=== PATIENT | male | born 1925 | race Caucasian/White ===

== ENCOUNTER 2016-10-12 16:10 | Emergency (ER) | payer MEDICARE ==
[~2016-10-12] VITALS: Ht 190.5 cm; Wt 90.7 kg
[~2016-10-12 16:10] MED LIST: CALC-20 PO; CHOL20004 PO; DONE10TA4 PO; LORA10TA68 PO; MEMA10PO MC; RIVA10TA PO; SERT50TA PO; [UNRECOGNIZED DRUG - CODE] IM
--- NOTE | 2016-10-12 16:25 | NUR ---
pt bibra from home to er bed 09. per report mechanical fall 2 days ago and is c/o lt knee pain. swelling noted. pt appears afib on the tele w/ rate of 120. gowned and placed on monitor. awaiting md cross.
--- NOTE | 2016-10-12 17:05 | NUR ---
dr ocasio at bedside for eval.
--- NOTE | 2016-10-12 17:14 | NUR ---
radiology at bedside for chest and l knee xray.
[2016-10-12] MEDS ORDERED: IV NS 0.9% 1,000 ML BAG IV ONE (17:30)
[2016-10-12] MEDS ORDERED: IV NS 0.9% 1,000 ML ONE (17:33)
[2016-10-12] MEDS ORDERED: IV SET PRIMARY 1 EA INFUS.SET MC ONE (17:33)
--- NOTE | 2016-10-12 17:34 | NUR ---
iv line started blood drawn and sent to lab.
[2016-10-12 17:39] LABS: LYMPHOCYTES # (AUTO) 1.3 /CMM (0.8-4.8); PLATELET COUNT (AUTO) 214 /CMM (150-450)
[2016-10-12] MEDS ORDERED: MEMA10TA PO (17:49)
[2016-10-12] MEDS ORDERED: DONE5TAB34 PO (17:49)
[2016-10-12] MEDS ORDERED: CHOL100044 PO (17:49)
[2016-10-12] MEDS ORDERED: CALC600T12 PO (17:49)
[2016-10-12 17:52] LABS: INR 1.46 (0.87-1.13); PROTHROMBIN TIME 15.5 SECS (9.5-12.7)
[2016-10-12 17:53] LABS: BASOPHILS # (AUTO) 0.1 /CMM (0.0-0.2); BASOPHILS % (AUTO) 0.7 % (0.0-2.0); EOSINOPHILS % (AUTO) 0.2 % (0.0-6.0); HEMATOCRIT 40 % (39-51); HEMOGLOBIN 12.2 g/dL (13.5-17.5); LYMPHOCYTES % (AUTO) 10.1 % (20.0-44.0); MEAN CORPUSCULAR HEMOGLOBIN 27 PG (26.0-33.0); MEAN CORPUSCULAR HGB CONC 31 g/dl (31.0-36.0); MEAN CORPUSCULAR VOLUME 88 fL (80-96); MONOCYTES % (AUTO) 7.9 % (2.0-12.0); NEUTROPHILS # (AUTO) 10.5 /CMM (1.8-8.9); NEUTROPHILS % (AUTO) 81.1 % (43.0-81.0); RDW COEFFICIENT OF VARIATION 15.6 (11.5-15.0); RED BLOOD CELL COUNT(AUTO) 4.51 MIL/uL (4.5-6.0); WHITE BLOOD COUNT (AUTO) 12.9 K/uL (4.3-11.0)
[2016-10-12 17:54] LABS: CALCIUM, SERUM 8.8 mg/dL (8.5-10.1); CARBON DIOXIDE 24 mmol/L (21-32); CHLORIDE 101 mmol/L (98-107); CREATININE 1.6 mg/dL (0.6-1.3); GLUCOSE 123 mg/dL (74-106); POTASSIUM 3.9 mmol/L (3.5-5.1); SODIUM SERUM 132 mmol/L (136-145); UREA NITROGEN, BLOOD 25 mg/dL (7-18)
[2016-10-12 18:02] LABS: ALANINE AMINOTRANSFERASE 13 U/L (12-78); ALKALINE PHOSPHATASE 118 U/L (46-116); ASPARTATE AMINOTRANSFERASE 42 U/L (15-37); BILIRUBIN,DIRECT 0.3 mg/dL (0.0-0.2); TOTAL PROTEIN, SERUM 6.8 g/dL (6.4-8.2)
[2016-10-12 18:06] LABS: TROPONIN I < 0.017 ng/mL (0.00-0.056)
--- NOTE | 2016-10-12 18:09 | NUR ---
CALLED NURSING SUP. FOR TELE BED
[2016-10-12 18:33] LABS: B-TYPE NATRIURETIC PEPTIDE 3170 PG/ML (0-125)
--- NOTE | 2016-10-12 19:43 | NUR ---
[facility]-- TRANSPORT ETA 60 MIN PER JEREMY
[2016-10-12 21:36] VITALS: BP 112/64
--- NOTE | 2016-10-12 21:36 | NUR ---
Patient discharged to home in stable condition. Written and verbal after care instructions given. Family verbalizes understanding of instruction.IV removed. Catheter intact and site benign. Pressure and 4x4 applied to site. No bleeding noted.
== END 2016-10-12 21:37 | disposition home or self-care (01) ==
LOC: ER 16:17
DX: M25.562 Pain in left knee (principal); J18.9 Pneumonia, unspecified organism; N28.9 Disorder of kidney and ureter, unspecified; F32.9 Major depressive disorder, single episode, unspecified; I10 Essential (primary) hypertension; I48.91 Unspecified atrial fibrillation; F03.90 Unspecified dementia, unspecified severity, without behavioral disturbance, psychotic disturbance, mood disturbance, and anxiety
CPT/HCPCS: 36415; 71010 ×2; 73564; 80048; 80076; 83880; 84484; 85025; 85730; 87081; 93005; 99285; A4606; J7030; Z7610

== ENCOUNTER 2016-10-16 16:46 | Inpatient (IN) | payer MEDICARE, OTHER ==
[~2016-10-16] VITALS: Ht 190.5 cm; Wt 104.3 kg
[~2016-10-16 16:46] MED LIST changes: -CALC-20 PO; +CALC600T12 PO; +CHOL100044 PO; -CHOL20004 PO; -DONE10TA4 PO; +DONE5TAB34 PO; -LORA10TA68 PO; -MEMA10PO MC; +MEMA10TA PO; -RIVA10TA PO; -[UNRECOGNIZED DRUG - CODE] IM
--- NOTE | 2016-10-16 17:00 | NUR ---
PT PATRICIA FROM HOME S/P GLF. PT AAOX2. NAD NOTED. DENIES KO. DENIES ANY PAIN. MD AT FOR EVAL. SAFETY AND COMFORT MEASURES PROVIDED. WILL MONITOR.
--- NOTE | 2016-10-16 17:15 | NUR ---
IV ACCESS STARTED. BLOOD DRAWN FOR LABS. URINE SAMPLE OBTAINED, SENT.
[2016-10-16 17:18] LABS: BASOPHILS # (AUTO) 0.8 /CMM (0.0-0.2); BASOPHILS % (AUTO) 4.4 % (0.0-2.0); EOSINOPHILS # (AUTO) 0.1 /CMM (0.0-0.7); EOSINOPHILS % (AUTO) 0.3 % (0.0-6.0); HEMATOCRIT 38 % (39-51); HEMOGLOBIN 12.4 g/dL (13.5-17.5); LYMPHOCYTES # (AUTO) 1.2 /CMM (0.8-4.8); LYMPHOCYTES % (AUTO) 7.3 % (20.0-44.0); MEAN CORPUSCULAR HEMOGLOBIN 29 PG (26.0-33.0); MEAN CORPUSCULAR HGB CONC 33 g/dl (31.0-36.0); MEAN CORPUSCULAR VOLUME 89 fL (80-96); MONOCYTES # (AUTO) 0.6 /CMM (0.1-1.30); MONOCYTES % (AUTO) 3.5 % (2.0-12.0); NEUTROPHILS # (AUTO) 14.3 /CMM (1.8-8.9); NEUTROPHILS % (AUTO) 84.5 % (43.0-81.0); PLATELET COUNT (AUTO) 307 /CMM (150-450); RDW COEFFICIENT OF VARIATION 15.7 (11.5-15.0)
[2016-10-16 17:29] LABS: CALCIUM, SERUM 8.8 mg/dL (8.5-10.1); CARBON DIOXIDE 25 mmol/L (21-32); CHLORIDE 100 mmol/L (98-107); CREATININE 1.6 mg/dL (0.6-1.3); GLUCOSE 120 mg/dL (74-106); POTASSIUM 4.6 mmol/L (3.5-5.1); SODIUM SERUM 135 mmol/L (136-145); UREA NITROGEN, BLOOD 30 mg/dL (7-18)
[2016-10-16 17:34] LABS: APPEARANCE,URINE Slightly Cloudy (CLEAR); BILIRUBIN,URINE SMALL (NEGATIVE); BLOOD, URINE Moderate Ery/uL (NEGATIVE); COLOR,URINE Dark (YELLOW); KETONES,URINE Negative (NEGATIVE); LEUKOCYTE ESTERASE ,URINE Small (NEGATIVE); NITRITE, URINE Positive (NEGATIVE); PH,URINE 5.5 (5.0-8.0); PROTEIN,URINE 30 mg/dl (NEGATIVE); UGLUCOSE Negative (NEGATIVE); UROBILINOGEN,URINE 0.2 EU/dL (0.2)
[2016-10-16 17:35] LABS: ALANINE AMINOTRANSFERASE 12 U/L (12-78); ALBUMIN 1.7 g/dL (3.4-5.0); ALKALINE PHOSPHATASE 131 U/L (46-116); ASPARTATE AMINOTRANSFERASE 41 U/L (15-37); BILIRUBIN,DIRECT 0.2 mg/dL (0.0-0.2); BILIRUBIN,TOTAL 0.8 mg/dL (0.2-1.0); TOTAL PROTEIN, SERUM 6.8 g/dL (6.4-8.2)
[2016-10-16 17:36] LABS: INR 1.43 (0.87-1.13); PROTHROMBIN TIME 15.2 SECS (9.5-12.7)
[2016-10-16 17:37] LABS: TROPONIN I < 0.017 ng/mL (0.00-0.056)
[2016-10-16 17:41] LABS: LACTIC ACID 3.1 mmol/L (0.4-2.0)
[2016-10-16 17:44] LABS: ADD URINE CULTURE YES; BACTERIA,URINE Moderate /HPF (None Seen); SQUAMOUS EPITHELIAL CELL,UR Rare /HPF (None Seen); WBC,URINE 81-100 /HPF (0-3)
--- NOTE | 2016-10-16 17:50 | NUR ---
DR.DAVID VILLANUEVA PAGED
[2016-10-16] MEDS ORDERED: PIPERACILLIN /TAZOBACTAM 3.375 G VIAL IV ONE (17:54)
[2016-10-16] MEDS ORDERED: IV NS 0.9% 1,000 ML ONE (17:54)
[2016-10-16] MEDS ORDERED: IV NS 0.9% 2,000 ML ONE (17:55)
[2016-10-16] MEDS ORDERED: IV SET PRIMARY PUMP SET 1 EA INFUS.SET MC ONE ×2 (17:55→22:17)
[2016-10-16] MEDS ORDERED: IV SET PRIMARY 1 EA INFUS.SET MC ONE (17:55)
[2016-10-16] MEDS ORDERED: PIPERACILLIN /TAZOBACTAM 2.25 G in IV D5W 50 ML IV ONE (18:00)
[2016-10-16] MEDS ORDERED: IV NS 0.9% 1,000 ML BAG IV ONE (18:00)
[2016-10-16] MEDS ORDERED: VANCOMYCIN 1 GM in IV D5W 250 ML IV ONE (18:00)
--- NOTE | 2016-10-16 18:04 | NUR ---
CALLED NURSING SUP. FOR TELE BED
[2016-10-16 18:54] LABS: BAND % (MANUAL) 1 % (0.0-5.0); BASOPHILS % (MANUAL) 0 % (0.0-2.0); EOSINOPHILS % (MANUAL) 0 % (0-4); LYMPHOCYTES % (MANUAL) 2 % (16-48); MONOCYTES % (MANUAL) 7 % (0-11.0); NEUTROPHILS % (MANUAL) 90 (42-76); PLATELET ESTIMATE ADEQUATE
--- NOTE | 2016-10-16 19:20 | NUR ---
CALLING REPORT TO TELE, MACHO
[2016-10-16 20:00] VITALS: BP 133/79
--- NOTE | 2016-10-16 20:30 | NUR ---
TELE/RN NOTES PAGED DR. MACKENZIE FOR ADMITTING ORDERS
--- NOTE | 2016-10-16 20:30 | NUR ---
TELE/RN OPENING NOTES PT ARRIVED TO UNIT FROM ER VIA GURNEY ACCOMPANIED BY DAUGHTER AND CAREGIVER. PT O2 IN THE LOW 90'S, ADMINISTERED 2LPM O2 VIA NC AND O2 SAT AT 96%. BREATHING IS EVEN AND UNLABORED WITH NO SIGNS OF DISTRESS. NON-PRODUCTIVE COUGH NOTED. ON TELE MONITOR, SINUS RHYTHM WITH BBB'S, PAC'S AND PVC'S, HEART RATE AT 86. IV TO RAC AND RFA PATENT AND INTACT, WITH NS BOLUS STILL INFUSING FROM ER. ORIENTED PT/FAMILY TO ROOM AND CALL LIGHT. BED RAILS UP WITH BED ALARM ON. IN LOW LOCKED POSITION. WILL CONTINUE TO MONITOR
--- NOTE | 2016-10-16 21:00 | NUR ---
TELE/RN NOTES SPOKE TO DR. MACKENZIE FOR ADMITTING ORDERS TO CONTINUE HOME MEDS, O2 AT 2L TO KEEP O2>92%, PUREE DIET, NS @ 100ML/HR, VANCO DOSING PER PHARMACY IN THE AM, ZOSYN DOSING PER PHARMACY IN THE AM, SWALLOW EVAL AND PT EVAL IN AM. MORNING LABS=CBC, BMP, MAG, PHOS ALL ORDERS NOTED AND TO BE ENTERED
[2016-10-16] MEDS ORDERED: IV NS 0.9% 1,000 ML BAG IV PRN (22:30)
[2016-10-16] MEDS: IV NS 0.9% 1,000 ML IV PRN (22:31)
--- NOTE | 2016-10-16 23:00 | NUR ---
TELE/RN NOTES PAGED DR. MEMBRENO AU PAIR MD FOR DR. MACKENZIE. LACTIC ACID 2.6 DOWN FROM 3.1 MADE AWARE OF 3.1L BOLUS NS, VANCO AND ZOSYN ADMINISTERED IN THE ER AND DR. MACKENZIE'S ORDERS. ORDERED LACTIC ACID FOR AM.
[2016-10-17] VITALS: BP 110/63
[2016-10-17 04:00] VITALS: BP 121/64
--- NOTE | 2016-10-17 06:38 | NUR ---
TELE/RN CLOSING NOTES PT ASLEEP, EASILY AROUSABLE TO NAME/TOUCH. IS HARD OF HEARING AND A/OX1-2. ON 2LPM O2 VIA NC, NO SOB OR S/S OF DISTRESS NOTED. ON TELE MONITOR, SINUS RHYTHM WITH BBB, PAC'S AND PVC'S WITH HEART RATE AT 92. BREATHING IS EVEN AND UNLABORED. IV TO RIGHT AC AND RIGHT FA PATENT AND INTACT. IVF TO RFA RUNNING NS @100ML/HR ORDERED. SWALLOW EVAL AND PT EVAL FOR THIS AM. BED IN LOW/LOCKED POSITION WITH CALL LIGHT IN REACH. BED RAILS UP AND ALARM ON. DAUGHTER SEYMOUR ([phone]) TO BRING A COPY OF ADVANCED DIRECTIVE THIS AM
[2016-10-17 06:48] VITALS: BP 119/72
[2016-10-17 06:50] LABS: EOSINOPHILS # (AUTO) 0.1 /CMM (0.0-0.7); EOSINOPHILS % (AUTO) 1.1 % (0.0-6.0); HEMATOCRIT 31 % (39-51); HEMOGLOBIN 10.1 g/dL (13.5-17.5); LYMPHOCYTES # (AUTO) 0.6 /CMM (0.8-4.8); LYMPHOCYTES % (AUTO) 5.3 % (20.0-44.0); MEAN CORPUSCULAR HEMOGLOBIN 29 PG (26.0-33.0); MEAN CORPUSCULAR HGB CONC 33 g/dl (31.0-36.0); MEAN CORPUSCULAR VOLUME 90 fL (80-96); MONOCYTES # (AUTO) 0.5 /CMM (0.1-1.30); MONOCYTES % (AUTO) 4.2 % (2.0-12.0); NEUTROPHILS # (AUTO) 10.2 /CMM (1.8-8.9); NEUTROPHILS % (AUTO) 89.4 % (43.0-81.0); PLATELET COUNT (AUTO) 241 /CMM (150-450); RDW COEFFICIENT OF VARIATION 16.7 (11.5-15.0); RED BLOOD CELL COUNT(AUTO) 3.45 MIL/uL (4.5-6.0); WHITE BLOOD COUNT (AUTO) 11.5 K/uL (4.3-11.0)
[2016-10-17 07:12] LABS: CALCIUM, SERUM 7.6 mg/dL (8.5-10.1); CREATININE 1.1 mg/dL (0.6-1.3); MAGNESIUM 1.8 mg/dL (1.8-2.4); PHOSPHORUS 2.8 mg/dL (2.5-4.9); POTASSIUM 3.7 mmol/L (3.5-5.1)
--- NOTE | 2016-10-17 07:15 | NUR ---
RN OR LVN NOTES RECEIVED PATIENT IN BED, SLEEPING, AROUSES EASILY. ON TELE MONITOR SINUS RHYTHM WITH FIRST DEGREE AV BLOCK, BBB, PAC. NO SOB NOTED, APPEARS COMFORTABLE IN BED, ON OXYGEN AT 2L/MIN VIA NC. CALL LIGHT WITHIN REACH. BED LOW AND LOCKED, SIDE RAILS UP X2. WILL CONT TO MONITOR.
[2016-10-17 08:00] VITALS: BP 119/72
[2016-10-17] MEDS ORDERED: FEE PK DOSING 1 MIN EA MC ONE (08:50)
[2016-10-17] MEDS: PIPERACILLIN /TAZOBACTAM 3.375 G in IV D5W 50 ML IV SCH ×3 (09:11→20:08)
[2016-10-17] MEDS: IV NS 0.9% 1,000 ML IV PRN (09:50)
[2016-10-17] MEDS ORDERED: VANCOMYCIN 1.25 GM in IV D5W 500 ML IV SCH (12:00)
[2016-10-17] MEDS ORDERED: SECONDARY IV SET 1 EA INFUS.SET MC ONE (12:37)
[2016-10-17] MEDS: SERTRALINE HCL 50 MG TABLET PO SCH (12:40)
[2016-10-17] MEDS: CHOLECALCIFEROL 1,000 UNIT TABLET (VIT D3) PO SCH (12:40)
--- NOTE | 2016-10-17 14:30 | NUR ---
PATIENT IS SEEN BY [facility] TODAY FOR [facility] AND RECOMMENDED MECHANICAL SOFT DIET.
[2016-10-17 16:00] VITALS: BP 127/79
--- NOTE | 2016-10-17 16:18 | NUR ---
PATIENT IS SEEN BY DR. RUBIO ZAMORANO TODAY, DAUGHTER ADRIANA BROUGHT IN [facility], PATIENT IS DNR STATUS. CHANGED CODE TO DNR ORDERED, CO-SIGNED BY ANOTHER RN.
[2016-10-17] MEDS: MEMANTINE HCL 5 MG TABLET PO SCH (17:05)
[2016-10-17] MEDS: ENOXAPARIN SODIUM 40 MG/0.4 ML DISP.SYRIN SQ SCH (17:25)
--- NOTE | 2016-10-17 18:41 | NUR ---
MS RN PATIENT IN BED, A/O X1 WITH CONFUSION. NOT IN DISTRESS, ON ANTIBIOTIC WITH NO ADVERSE REACTION, AFEBRILE. IV NS INFUSING AT 100ML/HR, TOLERATING WELL. TURN AND REPOSITION, ON ISOFLEX BED. MADE COMFORTABLE IN BED, CALL LIGHT WITHIN REACH. NO BOWEL MOVEMENT TODAY. FOR STOOL OB X3 ORDERED. WILL ENDORSE TO PAINTER TUMBLING BARREL RN FOR CONTINUITY OF CARE.
--- NOTE | 2016-10-17 19:30 | NUR ---
MS/RN OPENING NOTES PT ASLEEP, EASILY AROUSABLE TO NAME/TOUCH. IS HARD OF HEARING. ON 2LPM 02 VIA NC, BREATHING IS EVEN AND UNLABORED. NON PRODUCTIVE COUGH NOTED. IV TO RFA PATENT AND INTACT RUNNING IVF ORDERED. TO COLLECT STOOL X3 AND URINE FOR UA. BED IN LOW/LOCKED POSITION WITH CALL LIGHT IN REACH, BED RAILS UPX3 AND ALARM ON. WILL CONTINUE TO MONITOR
[2016-10-17 20:14] VITALS: BP 104/58
[2016-10-17] MEDS: Z GUARD REMEDY 2 OZ OINT TP SCH (20:59)
[2016-10-18] MEDS: PIPERACILLIN /TAZOBACTAM 3.375 G in IV D5W 50 ML IV SCH ×3 (01:26→11:37)
--- NOTE | 2016-10-18 02:00 | NUR ---
MS/RN NOTES PT ASLEEP, EASILY AROUSABLE TO NAME. BREATHING EVEN AND UNLABORED. WILL CONTINUE TO MONITOR
[2016-10-18] MEDS: IV NS 0.9% 1,000 ML IV PRN ×2 (02:49→21:23)
[2016-10-18] MEDS: VANCOMYCIN 1.25 GM in IV D5W 500 ML IV SCH (05:19)
--- NOTE | 2016-10-18 06:45 | NUR ---
MS/RN CLOSING NOTES PT ASLEEP, EASILY AROUSABLE TO NAME/ TOUCH. REMAINS ON O2 AT 2LPM VIA NC. NON PRODUCTIVE COUGH BUT DENIES SHORTNESS OF BREATH. NO S/S OF DISTRESS NOTED. DENIES PAIN. IV TO RIGHT FA PATENT AND INTACT, RUNNING IVF ORDERED. KEPT SKIN CLEAN AND DRY. Z GUARD APPLIED AND TURNED/REPOSITIONED Q2H. EXTREMITIES OFFLOADED. MADE PT COMFORTABLE THROUGHOUT SHIFT. ALL NEEDS MET AND ATTENDED. BED KEPT IN LOW/LOCKED POSITION WITH CALL LIGHT IN REACH. BED RAILS UPX3 WITH ALARM ON. WILL ENDORSE TO AM SHIFT AGUEDA.
--- NOTE | 2016-10-18 06:56 | NUR ---
MS/RN CLOSING NOTES PT AWAKE, A/OX3. ON/OFF 2LPM O2 VIA NC. DENIES SOB OR PAIN. BREATHING IS EVEN AND UNLABORED. NO SIGNS OF DISTRESS. NO IV SITE AT THIS TIME, DUE TO PT REFUSING RE-INSERTION. MADE AWARE OF ELEVATED BP WITH NO NEW ORDERS, ONLY TO MONITOR UNTIL AM. PT TO HAVE HD TODAY. BED IN LOW/LOCKED POSITION, CALL LIGHT IN REACH. BED RAILS UPX2. MADE PT COMFORTABLE AND ALL NEEDS MET AND ATTENDED TO. WILL ENDORSE TO AM SHIFT AGUEDA.
--- NOTE | 2016-10-18 07:25 | NUR ---
MS RN OPENING NOTES RECEIVED PT. FROM NIGHTSHIFT NURSE IN STABLE CONDITION. A/O X2. NO SOB OR SIGNS OF DISTRESS NOTED. BREATHING IS EVEN AND UNLABORED. RESPONDS TO NAME AND TOUCH. IV PRESENT ON RIGHT FOREARM INTACT AND PATENT INFUSING NS @ 100ML/HR. PT TOLERATING INFUSION WELL. NO REDNESS OR INFILTRATION NOTED. ISOFLEX BED IN LOW LOCKED POSITION, SIDE RAILS UP X2, CALL LIGHT WITHIN REACH. WILL CONTINUE TO MONITOR.
[2016-10-18 08:00] VITALS: BP 107/60
[2016-10-18] MEDS: CHOLECALCIFEROL 1,000 UNIT TABLET (VIT D3) PO SCH (08:24)
[2016-10-18] MEDS: DONEPEZIL 5 MG TABLET PO SCH (08:24)
[2016-10-18] MEDS: CALCIUM CARBONATE 500 MG TAB.CHEW PO SCH (08:24)
[2016-10-18] MEDS: MEMANTINE HCL 5 MG TABLET PO SCH ×2 (08:24→17:41)
[2016-10-18] MEDS: SERTRALINE HCL 50 MG TABLET PO SCH (08:24)
[2016-10-18] MEDS: Z GUARD REMEDY 2 OZ OINT TP SCH ×2 (08:27→21:58)
[2016-10-18] MEDS ORDERED: CHOLECALCIFEROL 1,000 UNIT TABLET (VIT D3) PO SCH (09:00)
[2016-10-18 09:46] LABS: BASOPHILS % (AUTO) 0.2 % (0.0-2.0); EOSINOPHILS # (AUTO) 0.1 /CMM (0.0-0.7); EOSINOPHILS % (AUTO) 1.6 % (0.0-6.0); HEMATOCRIT 29 % (39-51); HEMOGLOBIN 9.4 g/dL (13.5-17.5); LYMPHOCYTES # (AUTO) 0.6 /CMM (0.8-4.8); LYMPHOCYTES % (AUTO) 7.6 % (20.0-44.0); MEAN CORPUSCULAR HEMOGLOBIN 29 PG (26.0-33.0); MEAN CORPUSCULAR HGB CONC 32 g/dl (31.0-36.0); MEAN CORPUSCULAR VOLUME 89 fL (80-96); MONOCYTES # (AUTO) 0.5 /CMM (0.1-1.30); MONOCYTES % (AUTO) 5.8 % (2.0-12.0); NEUTROPHILS # (AUTO) 6.7 /CMM (1.8-8.9); NEUTROPHILS % (AUTO) 84.8 % (43.0-81.0); PLATELET COUNT (AUTO) 209 /CMM (150-450); RDW COEFFICIENT OF VARIATION 17.1 (11.5-15.0); RED BLOOD CELL COUNT(AUTO) 3.27 MIL/uL (4.5-6.0); WHITE BLOOD COUNT (AUTO) 7.9 K/uL (4.3-11.0)
[2016-10-18 10:03] LABS: BILIRUBIN,TOTAL 0.8 mg/dL (0.2-1.0); CALCIUM, SERUM 7.4 mg/dL (8.5-10.1); MAGNESIUM 1.8 mg/dL (1.8-2.4); PHOSPHORUS 2.2 mg/dL (2.5-4.9); POTASSIUM 3.3 mmol/L (3.5-5.1); TOTAL PROTEIN, SERUM 5.3 g/dL (6.4-8.2)
[2016-10-18 10:25] LABS: ALBUMIN 1.2 g/dL (3.4-5.0)
--- NOTE | 2016-10-18 10:30 | NUR ---
MS RN NOTES PT'S ALBUMIN WAS CRITICALLY LOW AT 1.2 DR. MACKENZIE WAS NOTIFIED. AWAITING MD ORDERS.
--- NOTE | 2016-10-18 11:02 | NUR ---
MS RN NOTES DR. DODSON AWARE OF LOW ALBUMIN. STATES THAT IT IS DUE TO MALNUTRITION AND ENCOURAGE NUTRITIONAL INTAKE. WILL CONTINUE TO MONITOR.
[2016-10-18] MEDS: FERROUS SULFATE (325 MG) 325 MG/TAB TABLET PO SCH ×2 (11:37→17:41)
[2016-10-18 11:43] VITALS: BP 107/60
[2016-10-18] MEDS ORDERED: K PHOS NEUTRAL 250 MG TABLET PO ONE (13:30)
[2016-10-18] MEDS ORDERED: POTASSIUM CHLORIDE 20 MEQ TAB.PRT.SR PO SCH (13:30)
[2016-10-18 16:00] VITALS: BP 105/59
--- NOTE | 2016-10-18 18:50 | NUR ---
MS RN CLOSING NOTES PT. IN STABLE CONDITION. NO SOB OR SIGNS OF DISTRESS AT THIS TIME. PT'S IV WAS LEAKING. I TRIED REINSERTING IT BUT WAS UNSUCCESSFUL. WILL ENDORSE TO NIGHTSHIFT NURSE TO TRY REINSERTION.ALL NEEDS MET AND ORDERS CARRIED OUT ACCORDINGLY. NO ACUTE CHANGES IN CONDITION DURING SHIFT. ALL SAFETY MEASURES IN PLACE. WILL ENDORSE TO NIGHTSHIFT NURSE FOR AGUEDA
--- NOTE | 2016-10-18 19:30 | NUR ---
MS/BALER; RECEIVED PT IN BED SLEEPING. BREATHING NON LABORED. WITH 02 2L NC PN. BED ON LOWER POSITION AND LOCKED FOR SAFETY. SIDE RAILS ARE UP FOR SAFETY. CONTINUE TO MONITOR. CALL LIGHT WITHIN REACH. ON CONTACT ISOLATION OBSERVED.
[2016-10-18 20:00] VITALS: BP 108/71
--- NOTE | 2016-10-18 20:00 | NUR ---
MS/WELL DRILL OPERATOR HELPER CABLE TOOL; RN DID TRY TO START AND IV LINE BUT NO SUCCESS. CHARGE MADE AWARE.
--- NOTE | 2016-10-18 21:00 | NUR ---
MS/BRIM BLOCKER; POUCH MAKING MACHINE OPERATOR , ED DID TRY IV LINE INSERTION ON RT IJ. HE SAID TO RESUME THE IVF AND OBSERVED FRO ANY SWELLING. IVF RESUMED.
[2016-10-18] MEDS: ENOXAPARIN SODIUM 40 MG/0.4 ML DISP.SYRIN SQ SCH (22:00)
--- NOTE | 2016-10-18 22:00 | NUR ---
MS/DIRECTOR OF FRONT OFFICE; CHARGE NURSE IGOR GOT AND ORDER FOR MIDLINE FROM DR. SHANKAR.
--- NOTE | 2016-10-19 | NUR ---
MS/CASE COORDINATOR; MACHO FRANCES CAME TO PUT A MIDLINE TO THIS PT. PT REFUSED PER JUAN DANIEL. SO I EXPLAINED TO THE PT AND HE AGREED TO HAVE MID LINE INSERTION. SO MACHO FRANCES INSERTED A MID LINE TO PT 'S PAMELA. IVF RESUMED.
[2016-10-19] MEDS: VANCOMYCIN 1.25 GM in IV D5W 500 ML IV SCH (00:23)
--- NOTE | 2016-10-19 02:00 | NUR ---
MS/SENIOR ACCOUNTING MANAGER; SLEEPING AT THIS TIME. BREATHING NON LABORED. CONTINUE TO MONITOR.
--- NOTE | 2016-10-19 06:29 | NUR ---
MS/AUTOMOTIVE TECHNICIAN INSTRUCTOR; SLEPT FAIRLY. IVF ON PROGRESS. BREATHING NON LABORED. DENIES PAIN. CONTINUE TO MONITOR. CALL LIGHT WITHIN REACH. WILL ENDORSE TO THE DAY SHIFT NURSE.
[2016-10-19 07:04] LABS: EOSINOPHILS # (AUTO) 0.2 /CMM (0.0-0.7); HEMATOCRIT 30 % (39-51); HEMOGLOBIN 9.9 g/dL (13.5-17.5); LYMPHOCYTES # (AUTO) 0.8 /CMM (0.8-4.8); LYMPHOCYTES % (AUTO) 10.7 % (20.0-44.0); MEAN CORPUSCULAR HEMOGLOBIN 29 PG (26.0-33.0); MEAN CORPUSCULAR HGB CONC 33 g/dl (31.0-36.0); MEAN CORPUSCULAR VOLUME 89 fL (80-96); MONOCYTES # (AUTO) 0.4 /CMM (0.1-1.30); MONOCYTES % (AUTO) 5.4 % (2.0-12.0); NEUTROPHILS # (AUTO) 6.2 /CMM (1.8-8.9); NEUTROPHILS % (AUTO) 81.9 % (43.0-81.0); PLATELET COUNT (AUTO) 233 /CMM (150-450); RED BLOOD CELL COUNT(AUTO) 3.37 MIL/uL (4.5-6.0); WHITE BLOOD COUNT (AUTO) 7.6 K/uL (4.3-11.0)
--- NOTE | 2016-10-19 07:13 | NUR ---
MS RN OPENING NOTES RECEIVED PT. FROM NIGHTSHIFT NURSE IN STABLE CONDITION. A/O X2. ON 2 L O2 VIA NC. NO SOB OR SIGNS OF DISTRESS NOTED. BREATHING IS EVEN AND UNLABORED. RESPONDS TO NAME AND TOUCH. MIDLINE PRESENT ON RIGHT UPPER ARM INTACT AND PATENT INFUSING NS @ 100ML/HR. PT TOLERATING INFUSION WELL. SECOND IV ON RIGHT IJ, HL, ALSO INTACT AND PATENT. NO REDNESS OF INFILTRATION NOTED. NO REDNESS OR INFILTRATION NOTED. ISOFLEX BED IN LOW LOCKED POSITION, SIDE RAILS UP X2, CALL LIGHT WITHIN REACH. WILL CONTINUE TO MONITOR.
[2016-10-19 07:23] LABS: CALCIUM, SERUM 7.5 mg/dL (8.5-10.1); CREATININE 0.8 mg/dL (0.6-1.3); MAGNESIUM 1.8 mg/dL (1.8-2.4); PHOSPHORUS 2.3 mg/dL (2.5-4.9); POTASSIUM 3.4 mmol/L (3.5-5.1)
[2016-10-19 08:00] VITALS: BP 99/53
[2016-10-19] MEDS: CHOLECALCIFEROL 1,000 UNIT TABLET (VIT D3) PO SCH (09:49)
[2016-10-19] MEDS: CALCIUM CARBONATE 500 MG TAB.CHEW PO SCH (09:49)
[2016-10-19] MEDS: SERTRALINE HCL 50 MG TABLET PO SCH (09:49)
[2016-10-19] MEDS: MEMANTINE HCL 5 MG TABLET PO SCH ×2 (09:49→17:55)
[2016-10-19] MEDS: Z GUARD REMEDY 2 OZ OINT TP SCH ×2 (09:50→22:08)
[2016-10-19] MEDS: DONEPEZIL 5 MG TABLET PO SCH (09:50)
[2016-10-19] MEDS: FERROUS SULFATE (325 MG) 325 MG/TAB TABLET PO SCH ×2 (09:50→17:55)
[2016-10-19] MEDS ORDERED: POTASSIUM CHLORIDE 20 MEQ TAB.PRT.SR PO ONE (10:30)
[2016-10-19] MEDS: IV NS 0.9% 1,000 ML IV PRN (10:43)
[2016-10-19] MEDS ORDERED: POTASSIUM PHOSPHATE MM 5 MMOL in IV D5W 100 ML IV SCH (12:00)
[2016-10-19] MEDS: VANCOMYCIN 1 GM in IV D5W 250 ML IV SCH (12:37)
[2016-10-19 16:00] VITALS: BP 102/58
--- NOTE | 2016-10-19 18:59 | NUR ---
MS RN CLOSING NOTES PT. IN STABLE CONDITION. NO SOB OR SIGNS OF DISTRESS AT THIS TIME. ALL SAFETY MEASURES IN PLACE. PT. KEPT COMFORTABLE AND DRY. REPOSITIONED EVERY 2 HOURS. ALL NEEDS MET AND ORDERS CARRIED OUT ACCORDINGLY. NO ACUTE CHANGES IN CONDITION DURING SHIFT. WILL ENDORSE TO NIGHTSHIFT NURSE FOR AGUEDA
--- NOTE | 2016-10-19 19:09 | NUR ---
Dtr Jeanette is requesting SNF @ [facility] with pcp Dr. Feroz Myers. Referral faxed to [facility] [phone], spoke with Radha who is aware patient is on isolation. Patient has been accepted and bed is available when discharge. Jeanette-dtr is aware and agreed with current dc plan. Addendum: 10/19/16 at 1910 by NATANAEL MOHR RN Amended: Links added.
--- NOTE | 2016-10-19 19:20 | NUR ---
MS/RN NOTES RECEIVED PT. LYING IN BED RESTING. PT. IS EASILY AROUSABLE TO NAME AND TOUCH. AWAKE, ALERT AND ORIENTED X2. BREATHING EVEN AND UNLABORED ON 3LPM O2 VIA NC. NO SOB, RESPIRATORY DISTRESS OR COMPLAINTS OF PAIN NOTED. PT. WITH RIGHT IJ SALINE LOCK PRESENT, PATENT AND INTACT. PT. WITH RIGHT UPPER ARM MIDLINE PRESENT, PATENT AND INTACT ADMINISTERING TO PT. NS @ 100ML/HR. PT. WITH CAREGIVERS PRESENT AT BEDSIDE. SIDE RAILS UP X3, BED ALARM ON, BED IN LOWEST POSITION, CALL LIGHT WITHIN REACH, WILL CONTINUE TO MONITOR.
[2016-10-19 20:30] VITALS: BP 103/62
[2016-10-19] MEDS: ENOXAPARIN SODIUM 40 MG/0.4 ML DISP.SYRIN SQ SCH (21:00)
[2016-10-19] MEDS: MUPIROCIN OINT 2% 22 GM TUBE SCH (22:08)
[2016-10-20] MEDS: VANCOMYCIN 1 GM in IV D5W 250 ML IV SCH ×2 (00:10→11:26)
[2016-10-20] MEDS: IV NS 0.9% 1,000 ML IV PRN (00:10)
--- NOTE | 2016-10-20 06:29 | NUR ---
MS/RN NOTES PT. LYING IN BED RESTING. BREATHING EVEN AND UNLABORED ON 2LPM O2 VIA NC. NO SOB, RESPIRATORY DISTRESS OR COMPLAINTS OF PAIN NOTED. PT. WITH RIGHT IJ SALINE LOCK PRESENT, PATENT AND INTACT. PT. WITH RIGHT UPPER ARM MIDLINE PRESENT, PATENT AND INTACT ADMINISTERING TO PT. NS @ 100ML/HR. BED IN LOWEST POSITION, SIDE RAILS UP X3, BED ALARM ON, CALL LIGHT WITHIN REACH, WILL ENDORSE TO DAYSHIFT NURSE FOR CONTINUITY OF CARE.
--- NOTE | 2016-10-20 07:25 | NUR ---
RN MS OPENING NOTES RECEIVED PATIENT IN BED, ASLEEP, HEAD OF BED ELEVATED, NO SOB OR DISTRESS NOTED, ON O2 2LPM VIA NC AND TOLERATED WELL. ALERT AND ORIENTED TIMES 1-2. IV INTACT AND PATENT. KEPT PATIENT CLEAN AND COMFORTABLE IN BED, CALL LIGHT WITHIN PATIENT REACH, WILL CONTINUE TO MONITOR ACCORDINGLY.
[2016-10-20 07:35] LABS: CALCIUM, SERUM 7.5 mg/dL (8.5-10.1); CREATININE 0.8 mg/dL (0.6-1.3); POTASSIUM 3.9 mmol/L (3.5-5.1)
[2016-10-20 09:30] VITALS: BP 108/55
[2016-10-20] MEDS: MEMANTINE HCL 5 MG TABLET PO SCH ×2 (10:00→17:15)
[2016-10-20] MEDS: Z GUARD REMEDY 2 OZ OINT TP SCH ×2 (10:00→21:14)
[2016-10-20] MEDS: DONEPEZIL 5 MG TABLET PO SCH (10:01)
[2016-10-20] MEDS: FERROUS SULFATE (325 MG) 325 MG/TAB TABLET PO SCH ×2 (10:02→17:15)
[2016-10-20] MEDS: CALCIUM CARBONATE 500 MG TAB.CHEW PO SCH (10:02)
[2016-10-20] MEDS: SERTRALINE HCL 50 MG TABLET PO SCH (10:02)
[2016-10-20] MEDS: CHOLECALCIFEROL 1,000 UNIT TABLET (VIT D3) PO SCH (10:02)
[2016-10-20] MEDS: MUPIROCIN OINT 2% 22 GM TUBE SCH ×2 (10:03→21:14)
--- NOTE | 2016-10-20 12:00 | NUR ---
RN NOTES SON IN LAW LEFT HIS NUMBER TO CONTACT HIM FOR ANYTHING.
--- NOTE | 2016-10-20 15:00 | NUR ---
RN NOTES PATIENT IN STABLE CONDITION RESTING IN BED WITH HEAD OF BED ELEVATED.
[2016-10-20 16:00] VITALS: BP 113/83
[2016-10-20] MEDS: RIVAROXABAN 10 MG TABLET PO SCH (17:17)
--- NOTE | 2016-10-20 19:05 | NUR ---
RN CLOSING NOTES ALL NEEDS PROVIDED, ATTENDED AND ANTICIPATED. KEPT PATIENT CLEAN AND COMFORTABLE IN BED, CALL LIGHT WITHIN PATIENT REACH , WILL CONTINUE TO MONITOR ACCORDINGLY. ENDORSED TO NEXT SHIFT RN TO CONTINUE CARE.
--- NOTE | 2016-10-20 19:30 | NUR ---
MS RN INITIAL NOTES: RECEIVED REPORT FROM MARE PRITCHARD. PT IN BED, AWAKE, A/O X2, ON 2L VIA NC RESPIRATION EVEN AND UNLABORED, NOTED PT TO HAVE NON PRODUCTIVE COUGH. RIGHT IJ IN PLACED AND PAMELA MIDLINE IN PLACED, BOTH PATENT AND FLUSHING WELL, ON HL. NOTED BOTH FEET EDEMA , KEPT OFFLOADED ON PILLOWS. CAREGIVER AT BED SIDE. SAFETY PRECAUTIONS FOR FALL INITIATED CALL LIGHT IN REACH, WILL CONTINUE TO MONITOR.
[2016-10-20 20:00] VITALS: BP 106/64
[2016-10-21] MEDS: VANCOMYCIN 1 GM in IV D5W 250 ML IV SCH ×2
--- NOTE | 2016-10-21 00:19 | NUR ---
ms rnnotes: result of vanco trough came back and reveal 21, dose of vancomycin not given at this time, per parameter hold if greater than 20, wrap yarn sorter aware
--- NOTE | 2016-10-21 05:36 | NUR ---
morning care: assisted top frame fitter in providing bed bath to the pt, wound care done as ordered, ble offloaded
--- NOTE | 2016-10-21 06:31 | NUR ---
ms rn closing notes: pt in bed, awake, remains a/o x2, on 2l via nc, respiration even and unlabored, no facial grimace noted. no untoward event happened throughout the shift. vanco trough level reported to pharmacy. emerita midline and right ij remains patent and flushing well, ble kept offloaded. vs remains stable, needs attended. will endorse to day rn for rachele.
[2016-10-21 07:23] LABS: CALCIUM, SERUM 7.6 mg/dL (8.5-10.1); CREATININE 0.7 mg/dL (0.6-1.3); POTASSIUM 3.8 mmol/L (3.5-5.1)
--- NOTE | 2016-10-21 07:30 | NUR ---
RN NOTES: RECEIVED PT IN BED, AWAKE, A/O X2, ON 2L VIA NC RESPIRATION EVEN AND UNLABORED, NOTED PT TO HAVE NON PRODUCTIVE COUGH. RIGHT IJ IN PLACED AND PAMELA MIDLINE IN PLACED, BOTH PATENT AND FLUSHING WELL, ON HL. NOTED BOTH FEET EDEMA , KEPT OFFLOADED ON PILLOWS. SAFETY PRECAUTIONS FOR FALL OBSERVED CALL LIGHT IN REACH, WILL CONTINUE TO MONITOR.
[2016-10-21 08:00] VITALS: BP 114/61
[2016-10-21] MEDS: FERROUS SULFATE (325 MG) 325 MG/TAB TABLET PO SCH ×2 (09:10→16:35)
[2016-10-21] MEDS: SERTRALINE HCL 50 MG TABLET PO SCH (09:10)
[2016-10-21] MEDS: CALCIUM CARBONATE 500 MG TAB.CHEW PO SCH (09:10)
[2016-10-21] MEDS: DONEPEZIL 5 MG TABLET PO SCH (09:10)
[2016-10-21] MEDS: MEMANTINE HCL 5 MG TABLET PO SCH ×2 (09:10→16:35)
[2016-10-21] MEDS: CHOLECALCIFEROL 1,000 UNIT TABLET (VIT D3) PO SCH (09:16)
[2016-10-21] MEDS: Z GUARD REMEDY 2 OZ OINT TP SCH ×2 (09:18→21:00)
[2016-10-21] MEDS: MUPIROCIN OINT 2% 22 GM TUBE SCH ×2 (09:18→21:01)
[2016-10-21] MEDS: VANCOMYCIN 0.75 GM in IV D5W 250 ML IV SCH ×2 (09:46→21:14)
[2016-10-21 16:00] VITALS: BP 105/59
[2016-10-21] MEDS: RIVAROXABAN 10 MG TABLET PO SCH (16:39)
--- NOTE | 2016-10-21 19:05 | NUR ---
RN NOTES: PT IN BED, ASLEEP EASILY AROUSABLE DURING CARE, A/O X2, ON 2L VIA NC RESPIRATION EVEN AND UNLABORED, NOTED PT TO HAVE NON PRODUCTIVE COUGH. LFA AND PAMELA MIDLINE IN PLACED, BOTH PATENT AND FLUSHING WELL, ON HL. SAFETY PRECAUTIONS FOR FALL OBSERVED CALL LIGHT IN REACH, WILL CONTINUE TO MONITOR AND ENDORSE TO NEXT SHIFT FOR CONTINUITY OF CARE
--- NOTE | 2016-10-21 19:30 | NUR ---
MSRN SLEEPING APPEARS COMFORTABLE, TO CONTINUE.
[2016-10-21 20:00] VITALS: BP 101/58
--- NOTE | 2016-10-21 20:00 | NUR ---
MSRN REFUSED BLOOD DRAW FOR [facility]. EXPLAINED IMPORTANCE FOR BLOOD DRAW STIL REFUSED. UNABLE TO DRAW FROM MIDLINE, NO BLOOD RETURN. ABLE TO DRAW FROM , WILL FOLLOW UP RESULT
--- NOTE | 2016-10-21 20:30 | NUR ---
MSRN BLOOD HEMOLIZED PER LAB, THIS TIME PATIENT AGREED FOR BLOOD DRAW.
--- NOTE | 2016-10-21 21:10 | NUR ---
MSRN VANCO TROUGH 14 . VANCO IVPB STARTED.
--- NOTE | 2016-10-22 01:58 | NUR ---
NERI AWAKE AT THIS TIME, AGREED TO HAVE PICTURES TAKEN FOR UPDATE. SEE PICTURES
--- NOTE | 2016-10-22 06:17 | NUR ---
MSRN UNCOOPERATIVE AT TIMES, TAKES 02 OFF, NEEDS CONSTANT MONITORING. OCC PRODUCTIVE COUGH, AM CARE DONE, TOTAL ASSIST.
--- NOTE | 2016-10-22 07:15 | NUR ---
MS/RN AM NOTES RECEIVED PATIENT IN BED, AWAKE, WITHOUT SOB, OXYGEN IN PLACE VIA N/C 2L/M SATURATION 93%, HOB ELEVATED FOR COMFORT. DENIES PAIN. IV PERIPHERAL LINE ON LFA INTACT, PATENT. PAMELA MIDLINE WITH INTACT DRESSING NO S/SX INFECTION, NO BLEEDING, PATENT. PATIENT IS ON CONTACT ISOLATION FOR MRSA NARES, NEEDS MET, WITH CALL LIGHT WITHIN EASY REACH, WILL CONTINUE TO MONITOR ACCORDINGLY.
[2016-10-22 07:39] LABS: CALCIUM, SERUM 7.8 mg/dL (8.5-10.1); POTASSIUM 4.1 mmol/L (3.5-5.1)
[2016-10-22 08:00] VITALS: BP 100/54
[2016-10-22] MEDS: MUPIROCIN OINT 2% 22 GM TUBE SCH (08:57)
[2016-10-22] MEDS: MEMANTINE HCL 5 MG TABLET PO SCH (08:57)
[2016-10-22] MEDS: CALCIUM CARBONATE 500 MG TAB.CHEW PO SCH (08:57)
[2016-10-22] MEDS: DONEPEZIL 5 MG TABLET PO SCH (08:57)
[2016-10-22] MEDS: CHOLECALCIFEROL 1,000 UNIT TABLET (VIT D3) PO SCH (08:57)
[2016-10-22] MEDS: VANCOMYCIN 0.75 GM in IV D5W 250 ML IV SCH (08:57)
[2016-10-22] MEDS: FERROUS SULFATE (325 MG) 325 MG/TAB TABLET PO SCH (08:57)
[2016-10-22] MEDS: SERTRALINE HCL 50 MG TABLET PO SCH (08:57)
[2016-10-22] MEDS: Z GUARD REMEDY 2 OZ OINT TP SCH (08:58)
[2016-10-22 10:00] VITALS: BP 100/54
--- NOTE | 2016-10-22 15:45 | NUR ---
MS/DIAGRAMMER NOTES DISCHARGED PATIENT IN STABLE CONDITION, VITAL SIGNS 98/57, 100, 93% WITH O2 2L/M VIA N/C, 22, 0/10 PAIN. PICKED UP BY AMBULANCE VIA GURNEY, WITH SON AND LOW AND CAREGIVER. DISCHARGE PAPERS GIVEN, INSTRUCTIONS ABOUT MEDICATION ADMINISTRATION AND ANTIBIOTIC TX GIVEN TO HUMAIRA BASURTO) FROM [facility]
== END 2016-10-22 15:30 | DRG 871 ==
LOC: ER 16:48 → TELE 19:19 → MED 10-17 08:41
PROVIDERS: ADMIT Internal Medicine; ATTEND Internal Medicine
PROC: 05H533Z Insertion of Infusion Device into Right Subclavian Vein, Percutaneous Approach (ICD-10-PCS; principal; 2016-10-19)
DX: A41.9 Sepsis, unspecified organism (principal); E43 Unspecified severe protein-calorie malnutrition; G82.50 Quadriplegia, unspecified; N17.0 Acute kidney failure with tubular necrosis; J15.9 Unspecified bacterial pneumonia; G92 Toxic encephalopathy; N39.0 Urinary tract infection, site not specified; R65.20 Severe sepsis without septic shock; I48.91 Unspecified atrial fibrillation; D63.8 Anemia in other chronic diseases classified elsewhere; Z86.72 Personal history of thrombophlebitis; Z85.828 Personal history of other malignant neoplasm of skin; I48.2 Chronic atrial fibrillation; I25.10 Atherosclerotic heart disease of native coronary artery without angina pectoris; F03.90 Unspecified dementia, unspecified severity, without behavioral disturbance, psychotic disturbance, mood disturbance, and anxiety; M19.90 Unspecified osteoarthritis, unspecified site; R91.8 Other nonspecific abnormal finding of lung field; D50.9 Iron deficiency anemia, unspecified; B95.62 Methicillin resistant Staphylococcus aureus infection as the cause of diseases classified elsewhere; E66.9 Obesity, unspecified; Z87.01 Personal history of pneumonia (recurrent); I11.9 Hypertensive heart disease without heart failure; I70.0 Atherosclerosis of aorta; Z66 Do not resuscitate; Z91.81 History of falling; Z68.28 Body mass index [BMI] 28.0-28.9, adult
CPT/HCPCS: 36415; 36569; 71010-TC; 73590-TC; 73600-TC; 80048-TC; 80053-TC; 80076-TC; 80202-TC; 81000-TC; 82728-TC; 82962-TC; 83540-TC; 83605-TC; 83735-TC; 84100-TC; 84484-TC; 85025-TC; 85730-TC; 87040-TC; 87081-TC; 87086-TC; 92611-TC; 93307-TC; 93971-TC; 94799-TC; 97001-TC; 97110-TC; 97112-TC; 97530-TC; A4606; J1650; J2543; J3370; J3490; J7030; J7060; Z7610

== ENCOUNTER 2016-11-05 10:28 | Inpatient (IN) | payer MEDICARE, OTHER ==
[~2016-11-05] VITALS: Ht 182.9 cm; Wt 112.5 kg
--- NOTE | 2016-11-05 10:30 | NUR ---
AAOX2, BIBRA 39 FROM [facility] FOR SOB, SPO2=84% ON 2L/MIN, RESP IS LABORED, RONCHI ON AUSCULTATION. PATIENT WAS ON SIMPLE MASK AT 15L/MIN HEADLINE WRITER WITH SPO2=96%. SKIN IS WARM AND DRY. PLACED ON MONITOR. CALLED RT. DR GUZMÁN AT FOR EVAL.
[2016-11-05] MEDS ORDERED: IV NS 0.9% 1,000 ML ONE (10:37)
[2016-11-05] MEDS ORDERED: CEFTRIAXONE 1GM BAG (ER ONLY) 50 ML IV ONE ×2 (10:37→11:00)
[2016-11-05] MEDS ORDERED: LEVOFLOXACIN 750 MG /D5W 150ML 150 ML IV ONE ×2 (10:37→11:00)
[2016-11-05] MEDS ORDERED: IV SET PRIMARY PUMP SET 1 EA INFUS.SET MC ONE ×2 (10:37→16:16)
[2016-11-05] MEDS ORDERED: ALBUTEROL FS 2.5 MG/3 ML VIAL.NEB ONE (10:43)
[2016-11-05] MEDS ORDERED: IPRATROPIUM NEB FS 0.5 MG/2.5 ML AMPUL.NEB ONE (10:43)
[2016-11-05 10:45] LABS: BASOPHILS # (AUTO) 0.2 /CMM (0.0-0.2); BASOPHILS % (AUTO) 1.3 % (0.0-2.0); EOSINOPHILS # (AUTO) 0.1 /CMM (0.0-0.7); HEMATOCRIT 26 % (39-51); HEMOGLOBIN 8.8 g/dL (13.5-17.5); LYMPHOCYTES # (AUTO) 1.3 /CMM (0.8-4.8); MEAN CORPUSCULAR HEMOGLOBIN 29 PG (26.0-33.0); MEAN CORPUSCULAR HGB CONC 34 g/dl (31.0-36.0); MEAN CORPUSCULAR VOLUME 87 fL (80-96); MONOCYTES # (AUTO) 0.6 /CMM (0.1-1.30); MONOCYTES % (AUTO) 4.4 % (2.0-12.0); NEUTROPHILS # (AUTO) 10.4 /CMM (1.8-8.9); NEUTROPHILS % (AUTO) 83.3 % (43.0-81.0); PLATELET COUNT (AUTO) 233 /CMM (150-450); RDW COEFFICIENT OF VARIATION 16.3 (11.5-15.0); RED BLOOD CELL COUNT(AUTO) 3.01 MIL/uL (4.5-6.0); WHITE BLOOD COUNT (AUTO) 12.6 K/uL (4.3-11.0)
--- NOTE | 2016-11-05 10:48 | NUR ---
BREATHING TREATMENT AT
[2016-11-05 10:55] LABS: CALCIUM, SERUM 8.2 mg/dL (8.5-10.1); CARBON DIOXIDE 25 mmol/L (21-32); CHLORIDE 112 mmol/L (98-107); CREATININE 1.7 mg/dL (0.6-1.3); GLUCOSE 128 mg/dL (74-106); POTASSIUM 3.6 mmol/L (3.5-5.1); SODIUM SERUM 143 mmol/L (136-145); UREA NITROGEN, BLOOD 28 mg/dL (7-18)
[2016-11-05 10:58] LABS: ABG BASE EXCESS -3.1 mmol/L; ABG PCO2 32.9 mmHg (35.0-45.0); ABG PH 7.421 (7.350-7.450); ABG PO2 89.8 mmHg (75.0-100.0); AaDO2 446.1 mmHg; COHb 1.1 % (0.5-1.5); MetHb 0.7 % (0.0-1.5); O2Hb 93.3 % (94.0-97.0); SITE, ABG Left Radial; VENT MODE, BG NRB 15L
[2016-11-05] MEDS ORDERED: ALBUTEROL FS 2.5 MG/3 ML VIAL.NEB NEB ONE (11:00)
[2016-11-05] MEDS ORDERED: IPRATROPIUM NEB FS 0.5 MG/2.5 ML AMPUL.NEB NEB ONE (11:00)
[2016-11-05] MEDS ORDERED: IV NS 0.9% 1,000 ML BAG IV ONE (11:00)
[2016-11-05] MEDS ORDERED: VANCOMYCIN 1 GM in IV D5W 250 ML IV ONE (11:00)
[2016-11-05 11:02] LABS: TROPONIN I 0.023 ng/mL (0.00-0.056)
[2016-11-05] MEDS ORDERED: IPRA0.2S49 NEB (11:05)
[2016-11-05] MEDS ORDERED: FERR-58 PO (11:05)
[2016-11-05] MEDS ORDERED: ZINC220T PO (11:05)
[2016-11-05] MEDS ORDERED: RIVA10TA PO (11:05)
[2016-11-05] MEDS ORDERED: ACET-868 PO (11:05)
[2016-11-05] MEDS ORDERED: ALBU2.5V13 NEB (11:05)
[2016-11-05] MEDS ORDERED: CALC-911 PO (11:05)
[2016-11-05] MEDS ORDERED: CRAN425C PO (11:05)
[2016-11-05] MEDS ORDERED: AMIN30LI2 PO (11:05)
[2016-11-05] MEDS ORDERED: LACT1CAP61 PO (11:05)
[2016-11-05] MEDS ORDERED: ASCO500T9 PO (11:05)
[2016-11-05] MEDS ORDERED: CRAN3875 PO (11:05)
[2016-11-05 11:07] LABS: ALANINE AMINOTRANSFERASE 19 U/L (12-78); ALKALINE PHOSPHATASE 143 U/L (46-116); ASPARTATE AMINOTRANSFERASE 37 U/L (15-37); B-TYPE NATRIURETIC PEPTIDE 10790 PG/ML (0-125); BILIRUBIN,DIRECT 0.1 mg/dL (0.0-0.2); BILIRUBIN,TOTAL 0.3 mg/dL (0.2-1.0); TOTAL PROTEIN, SERUM 6.2 g/dL (6.4-8.2)
[2016-11-05 11:09] LABS: ALBUMIN 0.9 g/dL (3.4-5.0)
--- NOTE | 2016-11-05 11:23 | NUR ---
XRAY IN PROGRESS AT BS
[2016-11-05 11:51] LABS: BILIRUBIN,URINE Negative (NEGATIVE); BLOOD, URINE Large Ery/uL (NEGATIVE); COLOR,URINE Yellow (YELLOW); KETONES,URINE Negative (NEGATIVE); LEUKOCYTE ESTERASE ,URINE Trace (NEGATIVE); NITRITE, URINE Negative (NEGATIVE); PH,URINE 5.5 (5.0-8.0); PROTEIN,URINE 100 mg/dl (NEGATIVE); UGLUCOSE Negative (NEGATIVE); UROBILINOGEN,URINE 0.2 EU/dL (0.2)
--- NOTE | 2016-11-05 11:53 | NUR ---
REPORT GIVEN TO MACHO SOSA FOR AGUDEA LIANNE 107
[2016-11-05 11:56] LABS: APPEARANCE,URINE Hazy (CLEAR)
[2016-11-05 12:00] VITALS: BP 112/64
[2016-11-05 12:00] LABS: BACTERIA,URINE Rare /HPF (None Seen); RBC,URINE 60-80 /HPF (0-2); SQUAMOUS EPITHELIAL CELL,UR Few /HPF (None Seen)
--- NOTE | 2016-11-05 12:00 | NUR ---
RN NOTES PT RECEIVED FROM ER IN ROOM 107, A/ CONFUSED , FOLLOWS SIMPLE COMMANDS , ON NON REBREATHING MASK , O2 SAT 96%, SUPPORTIVE FAMILY AT THE BEDSIDE, R HAND IV SITE CDI, SR UP x3, SEBAS LIGHT WITHIN EASY REACH , CONTINUE TO MONITOR PT CLOSELY AND NOTIFY MD FOR ANY SIGNIFICANT CHANGES
[2016-11-05 12:01] LABS: MUCUS,URINE Rare /LPF (None Seen); URINE AMORPHOUS URATE Rare /HPF (None Seen)
[2016-11-05] MEDS ORDERED: FEE PK DOSING 1 MIN EA MC ONE (15:29)
[2016-11-05 16:00] VITALS: BP 117/67
[2016-11-05] MEDS ORDERED: ALBUTEROL FS 2.5 MG/0.5 ML VIAL.NEB NEB PRN (16:00)
[2016-11-05] MEDS ORDERED: IPRATROPIUM NEB FS 0.5 MG/2.5 ML AMPUL.NEB NEB PRN (16:00)
[2016-11-05] MEDS ORDERED: HOME MED MISCELLANEOUS XX SCH ×2 (16:00)
[2016-11-05] MEDS ORDERED: ACETAMINOPHEN 325 MG TABLET PO PRN (16:00)
--- NOTE | 2016-11-05 16:00 | NUR ---
RN NOTES PT PULL R HAND IV LINE OUT , NEW IV SITE STARTED ON R FA .
[2016-11-05] MEDS ORDERED: IV NS 0.9% 250 ML IV ONE (16:16)
[2016-11-05] MEDS ORDERED: SECONDARY IV SET 1 EA INFUS.SET MC ONE (16:16)
[2016-11-05] MEDS: FERROUS SULFATE (325 MG) 325 MG/TAB TABLET PO SCH (16:28)
[2016-11-05] MEDS: PROSOURCE / PROSTAT (PYXIS) 30 ML UDC PO SCH (16:28)
[2016-11-05] MEDS: PIPERACILLIN /TAZOBACTAM 3.375 G in IV D5W 50 ML IV SCH ×2 (16:28→23:02)
[2016-11-05] MEDS ORDERED: RIVAROXABAN 10 MG TABLET PO SCH (18:00)
[2016-11-05] MEDS ORDERED: RIVAROXABAN 15 MG TABLET PO SCH (18:00)
--- NOTE | 2016-11-05 18:39 | NUR ---
RN NOTES PT STABLE , O2 SAT 98% ON NON REREADING MASK , SUPPORTIVE FAMILY AT THE BEDSIDE , NO SIGNIFICANT CHANGES NOTED ON THIS SHIFT .
--- NOTE | 2016-11-05 19:54 | NUR ---
RN;TD: PT CONTINUES TO REMOVE ALL TUBING AND IV WELL NON-REBREATHER REGARDLESS OF INSTRUCTION. PER PREVIOUS SHIFT PATIENT WAS ALSO REMOVING LINES AND O2 WELL. ATTEMPTED TO PLACE PATIENT ON MITTENS BUT PATIENT WAS ABLE TO REMOVE MITTENS. SPOKE WITH DR DODSON REGARDING PT AND ORDERS RECEIVED FOR BILATERAL SOFT WRIST RESTRAINTS. SPOKE WITH FAMILY REGARDING NECESSITY TO PLACE MITTENS ON PATIENTS AND THEN RESTRAINTS IF MITTENS ARE NOT EFFECTIVE. VSS. WILL CONTINUE TO MONITOR CLOSELY.
[2016-11-05 20:00] VITALS: BP 103/70
[2016-11-05] MEDS ORDERED: DONEPEZIL 5 MG TABLET PO SCH (22:00)
[2016-11-05] MEDS ORDERED: FUROSEMIDE 40 MG/4 ML VIAL ONE (22:36)
[2016-11-05] MEDS: FUROSEMIDE 40 MG/4 ML VIAL IV SCH (22:40)
--- NOTE | 2016-11-05 22:50 | NUR ---
RN:TD: DR LOAIZA AT THE BEDSIDE NEW ORDERS FOR LASIX, PT BP 113 SYSTOLIC PRIOR TO ADMIN OF LASIX. ORDERS FOR PATRICK CATH. ORDERS CARRIED OUT. WILL CONTINUE TO MONITOR CLOSELY,
[2016-11-06] VITALS (7 sets, daily range): BP systolic 89–120; BP diastolic 39–76
[2016-11-06] MEDS: PIPERACILLIN /TAZOBACTAM 3.375 G in IV D5W 50 ML IV SCH ×2 (05:20→12:04)
[2016-11-06 06:20] LABS: BASOPHILS % (AUTO) 0.1 % (0.0-2.0); EOSINOPHILS # (AUTO) 0.1 /CMM (0.0-0.7); EOSINOPHILS % (AUTO) 0.9 % (0.0-6.0); HEMATOCRIT 25 % (39-51); LYMPHOCYTES # (AUTO) 0.9 /CMM (0.8-4.8); LYMPHOCYTES % (AUTO) 7.9 % (20.0-44.0); MEAN CORPUSCULAR HEMOGLOBIN 29 PG (26.0-33.0); MEAN CORPUSCULAR HGB CONC 33 g/dl (31.0-36.0); MEAN CORPUSCULAR VOLUME 88 fL (80-96); MONOCYTES # (AUTO) 0.7 /CMM (0.1-1.30); MONOCYTES % (AUTO) 5.9 % (2.0-12.0); NEUTROPHILS # (AUTO) 9.4 /CMM (1.8-8.9); NEUTROPHILS % (AUTO) 85.2 % (43.0-81.0); PLATELET COUNT (AUTO) 209 /CMM (150-450); RDW COEFFICIENT OF VARIATION 17.9 (11.5-15.0); WHITE BLOOD COUNT (AUTO) 11.1 K/uL (4.3-11.0)
[2016-11-06 06:54] LABS: CALCIUM, SERUM 8.3 mg/dL (8.5-10.1); CARBON DIOXIDE 29 mmol/L (21-32); CHLORIDE 113 mmol/L (98-107); CREATININE 1.7 mg/dL (0.6-1.3); GLUCOSE 98 mg/dL (74-106); SODIUM SERUM 148 mmol/L (136-145); UREA NITROGEN, BLOOD 31 mg/dL (7-18)
[2016-11-06] MEDS: FERROUS SULFATE (325 MG) 325 MG/TAB TABLET PO SCH (07:48)
[2016-11-06] MEDS: FUROSEMIDE 40 MG/4 ML VIAL IV SCH (07:48)
[2016-11-06] MEDS: PROSOURCE / PROSTAT (PYXIS) 30 ML UDC PO SCH (07:49)
--- NOTE | 2016-11-06 08:00 | NUR ---
LOT BOSS RECEIVED PT IN BED ON RESTRAINTS, ON 15L MASK PT OPENS EYES DOES NOT FOLLOW OR ABLE TO SWALLOW PT HAD PITTING EDEMA ALL EXTREMITIES, PT TURNED AND REPOSITION IN BED, LEFT UPPER ARM SWOLLEN IV PATENT WITH GOOD BLOOD RETURN AND FLUSH, ABD SOFT ACTIVE BOWL SOUNDS, SR ON TELE SBP STABLE, RELEASED RESTRAIN CHECK SKIN AND CIRCULATION, TURN AND REPOSITION IN BED FALL PRECAUTIONS TAKEN WILL CONTINUE TO MONITOR.
[2016-11-06 08:42] LABS: ABG BASE EXCESS -2.6 mmol/L; ABG OXYGEN SATURATION 95.9 % (92.0-98.5); ABG PCO2 38.1 mmHg (35.0-45.0); ABG PH 7.383 (7.350-7.450); ABG PO2 104.6 mmHg (75.0-100.0); AaDO2 570.3 mmHg; COHb 0.7 % (0.5-1.5); MetHb 0.9 % (0.0-1.5); O2Hb 94.4 % (94.0-97.0); SITE, ABG Right Radial; VENT MODE, BG N/B MASK
[2016-11-06] MEDS ORDERED: CHOLECALCIFEROL 1,000 UNIT TABLET (VIT D3) PO SCH (09:00)
[2016-11-06] MEDS ORDERED: CALCIUM CARBONATE 500 MG TAB.CHEW PO SCH (09:00)
[2016-11-06] MEDS ORDERED: VANCOMYCIN 1.25 GM in IV D5W 500 ML IV SCH (09:00)
[2016-11-06] MEDS ORDERED: SERTRALINE HCL 50 MG TABLET PO SCH (09:00)
[2016-11-06] MEDS ORDERED: ASCORBIC ACID 500 MG TABLET PO SCH (09:00)
[2016-11-06] MEDS ORDERED: ZINC SULFATE 220 MG CAPSULE PO SCH (09:00)
[2016-11-06] MEDS ORDERED: LACTOBACILLUS RHAMNOSUS GG 1 EACH CAP.SPRINK PO SCH (09:00)
--- NOTE | 2016-11-06 09:00 | NUR ---
BACK PAD INSPECTORLINEN ROOM SUPERVISOR PT AT BEDSIDE SPOKE WITH DR. NAZARIO REGARDING THE PT AND GOALS, FAMILY AGREED TO MAKE PT COMFORT CARE AND REMOVE ALL MEDICAL INTERVENTION, STILL KEEP PT ON HIGH FLOW OXYGEN. WILL FOLLOW MD ORDERS AND FAMILY WISHES AND CONTINUE TO CARE FOR THE PATIENT
[2016-11-06] MEDS ORDERED: MORPHINE SULFATE SOLN CONCENTRATED 20 MG/ML SL PRN (10:30)
[2016-11-06] MEDS ORDERED: ATROPINE SULFATE OPHTH SOLN 15 ML BOTTLE SL PRN (10:30)
[2016-11-06] MEDS ORDERED: MORPHINE SULFATE INJ 2 MG/ML DISP.SYRIN IV PRN (10:30)
[2016-11-06] MEDS ORDERED: LORAZEPAM 0.5 MG TABLET SL PRN (10:30)
[2016-11-06] MEDS: MORPHINE SULFATE INJ 2 MG/ML DISP.SYRIN IV PRN ×2 (17:55→20:55)
--- NOTE | 2016-11-06 19:30 | NUR ---
MS/RN NOTES RECEIVED PT IN STABLE CONDITION. RESTING IN BED WITH EYES CLOSED, CALM AND QUIET. ON NON REBREATHER MASK, O2 SAT 99%. IV HL. BUE AND BLE EDEMA +2-+3. PATRICK CATH INTACT DRAINING CLEAR YELLOW URINE. RASH TO GROIN WITH Z-GUARD. JERILYN HEELS ELEVATED ON PILLOW. PRIVATE SITTERS AT BEDSIDE. APPEARS TO BE COMFORTABLE. BED AT LOWEST POSITION AND LOCKED, HOB ELEVATED, SIDE TABLE AND CALL PIRES WITHIN REACH. WILL CONTINUE TO MONITOR.
--- NOTE | 2016-11-06 23:35 | NUR ---
MS/RN NOTES PATIENT OPENS EYES AND LOOKS AT ME. PULLED BLANKET OVER HIM AND WENT BACK TO SLEEP. PATIENT COOPERATIVE WHEN TAKING BLOOD PRESSURE. DOES NOT APPEAR TO BE IN PAIN. CALM AND QUIET AT THIS TIME. BED ALARM ON, SIDE RAILX 3 UP, BED AT LOWEST POSITION AND LOCKED, HOB ELEVATED, SIDE TABLE AND CALL PIRES WITHIN REACH. WILL CONTINUE TO MONITOR.
[2016-11-07 02:00] VITALS: BP 89/49
--- NOTE | 2016-11-07 06:26 | NUR ---
MS/RN NOTES ALERT AND ORIENTED X1. EYES OPEN WHEN MOVED. CALM AND QUIET. NO LABORED BREATHING ON NON REBREATHER MASK @ O2 15L. PATRICK CATH WITH 400ML YELLOW URINARY OUTPUT. NO C/O OF PAIN AND MADE COMFORTABLE. KEPT SKIN CLEAN AND DRY. JERILYN LOWER EXTREMITY ELEVATED ON PILLOW. TURNED AND REPOSITIONED Q2H AND PATIENT PERMITS. ALL NEEDS MET. CALL PIRES WITHIN REACH AND BED ALARM ON. WILL ENDORSE TO AM SHIFT FOR CONTINUITY OF CARE.
[2016-11-07 07:01] LABS: CALCIUM, SERUM 8.1 mg/dL (8.5-10.1); CARBON DIOXIDE 27 mmol/L (21-32); CHLORIDE 112 mmol/L (98-107); CREATININE 1.7 mg/dL (0.6-1.3); GLUCOSE 76 mg/dL (74-106); POTASSIUM 3.8 mmol/L (3.5-5.1); SODIUM SERUM 147 mmol/L (136-145); UREA NITROGEN, BLOOD 33 mg/dL (7-18)
--- NOTE | 2016-11-07 07:15 | NUR ---
RN INITIAL NOTE PATIENT RECEIVED IN BED, APPEARS COMFORTABLE. PATIENT IS ON HOSPICE. PATRICK CATHETER DRAINING TO GRAVITY. IV SITE FLUSHED, PATENT. BED IN LOCKED, LOW POSITION WITH TWO SIDE RAILS UP. WILL CONTINUE TO MONITOR.
[2016-11-07 08:00] VITALS: BP 91/46
[2016-11-07] MEDS ORDERED: HYDROGEL DRESSING 90 GM TUBE TP PRN (08:30)
[2016-11-07] MEDS ORDERED: Z GUARD REMEDY 2 OZ OINT TP PRN (08:30)
[2016-11-07] MEDS: MORPHINE SULFATE INJ 2 MG/ML DISP.SYRIN IV PRN ×6 (08:43→14:52)
[2016-11-07] MEDS ORDERED: HYDROGEL DRESSING 90 GM TUBE TP SCH (09:00)
[2016-11-07] MEDS ORDERED: Z GUARD REMEDY 2 OZ OINT TP SCH (09:00)
--- NOTE | 2016-11-07 15:28 | NUR ---
RN CLOSING NOTE PATIENT DISCHARGED HOME ON HOSPICE. AMBULANCE HERE FOR TRANSFER
== END 2016-11-07 15:59 | disposition hospice, home (50) | DRG 871 ==
LOC: ER 10:29 → TELE-TD 12:10 → MEDSG1 11-06 12:33
PROVIDERS: ADMIT Internal Medicine Nephrology; ATTEND Internal Medicine Nephrology
DX: A41.9 Sepsis, unspecified organism (principal); J18.9 Pneumonia, unspecified organism; I50.33 Acute on chronic diastolic (congestive) heart failure; E43 Unspecified severe protein-calorie malnutrition; N17.0 Acute kidney failure with tubular necrosis; G93.40 Encephalopathy, unspecified; N39.0 Urinary tract infection, site not specified; I11.0 Hypertensive heart disease with heart failure; I48.2 Chronic atrial fibrillation; F03.90 Unspecified dementia, unspecified severity, without behavioral disturbance, psychotic disturbance, mood disturbance, and anxiety; Z87.440 Personal history of urinary (tract) infections; D63.8 Anemia in other chronic diseases classified elsewhere; Z68.33 Body mass index [BMI] 33.0-33.9, adult; D50.0 Iron deficiency anemia secondary to blood loss (chronic); M19.90 Unspecified osteoarthritis, unspecified site; Z86.718 Personal history of other venous thrombosis and embolism; L98.8 Other specified disorders of the skin and subcutaneous tissue; L30.4 Erythema intertrigo; S81.809A Unspecified open wound, unspecified lower leg, initial encounter; X58.XXXA Exposure to other specified factors, initial encounter; Y93.9 Activity, unspecified; Y92.129 Unspecified place in nursing home as the place of occurrence of the external cause; Z51.5 Encounter for palliative care; S90.32XA Contusion of left foot, initial encounter; S60.212A Contusion of left wrist, initial encounter; Z86.14 Personal history of Methicillin resistant Staphylococcus aureus infection; I25.10 Atherosclerotic heart disease of native coronary artery without angina pectoris; Z87.01 Personal history of pneumonia (recurrent)
CPT/HCPCS: 31720; 36415; 36600; 71010-TC; 80048-TC; 80076-TC; 81000-TC; 82803-TC; 83605-TC; 83880; 84484-TC; 85025-TC; 87040-TC; 87070-TC; 87081-TC; 94640-TC; 94799-TC; A4606; A6248; J0696; J1940; J1956; J2270; J2543; J3370; J7030; J7050; J7060; Z7610